=== PATIENT | male | born 1950 | race Caucasian/White ===

== ENCOUNTER → 2017-03-25 | Outpatient (CLI) | payer BC ==
[~2017-03-25] MED LIST: ACET-1138 PO; ALL300 PO; ASPEC325 PO; ATOR10TA82 PO; BENA20TA12 PO; CYAN100020 PO; FLM4 PO; KETO2CRE14 TOP; MELO15TA4 PO; METO25TA3 PO; MULT-506 PO; OMEG10007 PO; PRLSR20 PO; RXC5 PO; SYN88 PO
--- NOTE | 2017-03-25 16:38 | DIAGNOSTIC IMAGING REPORT ---
CT OF THE CHEST WITHOUT IV CONTRAST CLINICAL HISTORY: Follow-up pulmonary nodule. COMPARISON STUDY: Chest CTs September 23, 2015 and March 22, 2016. CT DOSE: 887.54 mGy.cm TECHNIQUE: Axial images of the chest were obtained without IV contrast. Images were reviewed in the axial, sagittal, and coronal planes. IV contrast was not administered for this examination. A dose lowering technique was utilized adhering to the principles of ALARA. FINDINGS: No enlarged axillary, mediastinal or hilar lymph nodes are present. The size of the heart is normal. Mild dilatation of the ascending aorta, measuring 4 cm, is unchanged. There is extensive coronary artery calcification. Central airways are patent. No consolidation to suggest pneumonia. A 5 mm subpleural right upper lobe nodule shown on image 114 of [address] of September 23, 2015. No new nodules are present. No pneumothorax or pleural effusion is present. Punctate calculi are identified within each collecting system. Upper abdomen is otherwise unremarkable. IMPRESSION: 1. No change in a 5 mm right upper lobe nodule since CT of September 23, 2015. This is likely benign. However, a follow chest CT in one year could be obtained to ensure stability. 2. Punctate bilateral renal calculi. 3. No acute intrathoracic findings. 4. No thoracic lymphadenopathy. 5. Extensive coronary artery calcification. Electronically signed by: Mohsen Angel M.D. 03/25/2017 4:37 PM Dictated Date/Time: 03/25/2017 4:25 PM
== END | disposition home or self-care (01) ==
LOC: C.CTS 16:01
PROVIDERS: ATTEND Physician Assistant
DX: R91.1 Solitary pulmonary nodule (principal)

== ENCOUNTER → 2017-07-23 | Outpatient (CLI) | payer BC ==
[~2017-07-23] MED LIST changes: +MELO-84 PO; -MELO15TA4 PO
--- NOTE | 2017-07-23 08:29 | DIAGNOSTIC IMAGING REPORT ---
KUB HISTORY: N20.0 Nephrolithiasis COMPARISON: KUB 01/26/2016. FINDINGS: The bowel gas pattern is unremarkable. There are no dilated loops of small bowel to suggest an obstruction. Calcifications in the deep pelvis likely represent phleboliths. These remain unchanged. Multiple bilateral renal calculi are again noted. These are similar compared the prior study. Dominant stone within the lower pole the left kidney measures 5 mm. No ureteral calculi identified. No pneumoperitoneum or pneumatosis. IMPRESSION: No significant change in the bilateral nephrolithiasis. No ureteral calculi. Electronically signed by: Randy Barnes M.D. 07/23/2017 8:28 AM Dictated Date/Time: 07/23/2017 8:27 AM
== END ==
LOC: C.RAD 07:11
PROVIDERS: ATTEND Urology
DX: N20.0 Calculus of kidney (principal); N40.1 Benign prostatic hyperplasia with lower urinary tract symptoms; R97.20 Elevated prostate specific antigen [PSA]

== ENCOUNTER 2018-01-04 07:46 | Inpatient (IN) | payer BC, OTHER ==
[2017-11-30 09:10] VITALS: Ht 175.3 cm; Wt 101.4 kg
--- NOTE | 2017-12-12 13:25 | PAT Medication Instructions ---
Service Date Dec 12, 2017. Current Home Medication List Allopurinol (Zyloprim), 300 MG PO QAM Aspirin (Aspirin Chewable), 81 MG PO QAM Benazepril/Hctz (Lotensin Hct), 1 TAB PO QAM Cyanocobalamin (Vitamin B12), 1 TAB PO QAM Fish Oil ([place]-3), 3 CAP PO QPM Ketoconazole (Topical) (Xolegel), 1 DOSE EXT DIRECTED PRN for PRN Levothyroxine Sodium (Levothyroxine Sodium), 1 TAB PO QAM Meloxicam (Mobic), 7.5 MG PO QAM Metoprolol Succ (Toprol Xl) (Toprol-Xl), 25 MG PO QAM Multivitamin (Multivitamin), 1 TAB PO QPM Omeprazole (Prilosec), 20 MG PO QAM Oxycodone/Acetaminophen 5MG/325MG (Percocet 5MG/325MG), 1 TABLET PO Q4H PRN for Pain Phenazopyridine Hcl (Pyridium), 200 MG PO TID Rosuvastatin Calcium (Crestor), 5 MG PO QAM Tamsulosin Hcl (Flomax), 0.4 MG PO QPM Medication Instructions For Your Scheduled Surgery - Continue as directed: Phenazopyridine Hcl (Pyridium), 200 MG PO TID - Check with surgeon for instructions: Meloxicam (Mobic), 7.5 MG PO QAM - Hold the following medications 24 hours prior to surgery: Ketoconazole (Topical) (Xolegel), 1 DOSE EXT DIRECTED PRN for PRN - Hold the following medications 2 weeks prior to surgery: Fish Oil ([place]-3), 3 CAP PO QPM - Hold the following medications the morning of surgery: Benazepril/Hctz (Lotensin Hct), 1 TAB PO QAM Cyanocobalamin (Vitamin B12), 1 TAB PO QAM - Take the following medications the morning of surgery with a sip of water: Levothyroxine Sodium (Levothyroxine Sodium), 1 TAB PO QAM Metoprolol Succ (Toprol Xl) (Toprol-Xl), 25 MG PO QAM Omeprazole (Prilosec), 20 MG PO QAM Oxycodone/Acetaminophen 5MG/325MG (Percocet 5MG/325MG), 1 TABLET PO Q4H PRN for Pain (okay to take up to 4 hours prior to surgery if needed) Rosuvastatin Calcium (Crestor), 5 MG PO QAM Allopurinol (Zyloprim), 300 MG PO QAM Aspirin (Aspirin Chewable), 81 MG PO QAM - Take the following medications as scheduled the night before surgery: Tamsulosin Hcl (Flomax), 0.4 MG PO QPM Oxycodone/Acetaminophen 5MG/325MG (Percocet 5MG/325MG), 1 TABLET PO Q4H PRN for Pain (if needed) Multivitamin (Multivitamin), 1 TAB PO QPM If you have any questions please call us at [phone] or [phone] or [phone]
[2018-01-04] VITALS (9 sets, daily range): BP systolic 112–147; BP diastolic 67–85; PULSE 54–82; TEMP 36.4–36.6; O2SAT 94–99
[~2018-01-04] VITALS: Ht 175.3 cm; Wt 101.4 kg
[~2018-01-04 07:46] MED LIST changes: -ACET-1138 PO; +ACETAMINOPHEN 500 MG TAB PO SCH; -ALL300 PO; +ALLO300T2 PO; +ASPCH81X PO; -ASPEC325 PO; -ATOR10TA82 PO; +ATROPINE SULFATE 0.1 MG/ML 5ML SYR IV PRN; +BENA-3 PO; -BENA20TA12 PO; +CEFAZOLIN 2000MG IV PUSH 15 ML IV SCH; +CeleBREX 200 MG CAP PO SCH; +EpHEDrine SULFATE INJ 50 MG/ML AMP IV PRN; +FENTANYL CITRATE INJ 50 MCG/1 ML 2 ML VIAL IV PRN; -FLM4 PO; +GABAPENTIN 300 MG CAP PO SCH; +HYDROmorphone INJ 1 MG/ML SYR IV PRN; -KETO2CRE14 TOP; +KETO2GEL2 EXT; +LEVO100T7 PO; -MELO-84 PO; +MELO7.5T5 PO; +ONDANSETRON INJ 2 MG/ML 2 ML VIAL IV PRN; +OXYC-57 PO; +PHENYLEPHRINE 100MCG/ML 5ML SYR IV PRN; +PROMETHAZINE HCL INJ 12.5 MG in SODIUM CHLORIDE 0.9% 50ML 50 ML IV PRN; +ROSU5TAB PO; -RXC5 PO; -SYN88 PO; +TAMS0.4C38 PO
[2018-01-04] MEDS ORDERED: DOCU-94 PO (08:33)
[2018-01-04] MEDS ORDERED: MIDAZOLAM HCL 1 MG/ML 2ML VIAL ONE (08:46)
[2018-01-04] MEDS ORDERED: FENTANYL CITRATE INJ 50 MCG/1 ML 2 ML VIAL ONE ×3 (08:46→11:25)
--- NOTE | 2018-01-04 09:03 | History & Physical Bridge Note ---
H&P Re-Evaluation Bridge Note: I have examined the patient, reviewed the History & Physical and in the interval since the performance of the History & Physical I have noted the following changes of clinical significance: No changes noted
--- NOTE | 2018-01-04 09:04 | History and Physical ---
History & Physical Date Jan 04, 2018. Chief Complaint Back and leg pain History of Present Illness The patient is a 67 year old male with complaints of back and leg pain Past Medical/Surgical History Medical Problems: (1) Left Knee DJD Additional History Hepatic Disease: No Endocrine Disorder: No Kidney Disease: No Hypertension: Yes Heart Disease: No Bleeding Tendencies: No Infectious Diseases: No Allergies Coded Allergies: No Known Allergies (Verified , 01/04/18) Home Medications Scheduled Allopurinol (Zyloprim), 300 MG PO QAM Aspirin (Aspirin Chewable), 81 MG PO QAM Benazepril/Hctz (Lotensin Hct), 1 TAB PO QAM Cyanocobalamin (Vitamin B12), 1 TAB PO QAM Docusate Sodium (Colace), 1 CAP PO BID Fish Oil ([place]-3), 3 CAP PO QPM Levothyroxine Sodium (Levothyroxine Sodium), 1 TAB PO QAM Meloxicam (Mobic), 7.5 MG PO QAM Metoprolol Succ (Toprol Xl) (Toprol-Xl), 25 MG PO QAM Multivitamin (Multivitamin), 1 TAB PO QPM Omeprazole (Prilosec), 20 MG PO QAM Rosuvastatin Calcium (Crestor), 5 MG PO QAM Tamsulosin Hcl (Flomax), 0.4 MG PO QPM Scheduled PRN Ketoconazole (Topical) (Xolegel), 1 DOSE EXT DIRECTED PRN for PRN Physical Examination Skin: warm/dry, no rash Eyes: normal inspection, EOMI, sclerae normal ENT: normal ENT inspection, pharynx normal Head: normocephalic, atraumatic Neck: supple, no adenopathy, trachea midline Respiratory/Chest: lungs clear, normal breath sounds, no respiratory distress Cardiovascular: regular rate, rhythm, no edema, no murmur Abdomen / GI: normal bowel sounds, non tender Back: normal inspection Extremities: normal inspection, normal range of motion Neurologic/Psych: no motor/sensory deficits, alert, normal reflexes, oriented x 3 Diagnosis Lumbar spinal stenosis with neurogenic claudication and spondylolisthesis Plan of Treatment L2-L5 decompression and fusion
[2018-01-04] MEDS ORDERED: BUPIVACAINE LIPOSOME 1/3% 266 MG/20 ML VIAL ONE (09:21)
[2018-01-04] MEDS ORDERED: BACITRACIN 50000 UNIT VIAL ONE (09:21)
[2018-01-04] MEDS ORDERED: SODIUM CHLORIDE 0.9% PF 50 ML VIAL ONE (09:21)
[2018-01-04] MEDS ORDERED: BUPIVACAINE 0.5 % 5 MG/1 ML PF 10ML VIAL ONE (09:22)
[2018-01-04] MEDS ORDERED: BUPIVACAINE/EPINEPHRINE 0.5% MPF 1:200,000 30 ML VIAL ONE (09:54)
[2018-01-04] MEDS ORDERED: HYDROmorphone INJ 2 MG/ML SYR/VIAL ONE ×3 (10:07→12:19)
[2018-01-04] MEDS ORDERED: PHENYLEPHRINE 100MCG/ML 5ML SYR ONE ×2 (10:30→12:39)
[2018-01-04] MEDS ORDERED: ALBUMIN HUMAN 5% 12.5 GM/250 ML VIAL IV ONE ×2 (11:38→12:29)
[2018-01-04 12:37] LABS: HEMOGLOBIN 11.5 g/dL (14.0-18.0)
--- NOTE | 2018-01-04 12:37 | [facility] Operative Report ---
Operative Report Operative Date Jan 04, 2018. Pre-Operative Diagnosis Lumbar spinal stenosis with neurogenic claudication and spondylolisthesis Post-Operative Diagnosis Same Procedure(s) Performed 1. Lumbar decompression medial facetectomies foraminotomies L2-3 L3-4 L4-5. #2 posterior spinal fusion L2-3 L3-4 L4-5 per #3 placement posterior segmental instrumentation L2-L5. #4 interbody fusion L3-4-5. #5 placement of 13 x 26 mm titanium cage at L3-4 and L4-5 per #6 placement of local autograft in the posterior lateral gutters. #7 placement InFUSE collagen sponge Bymaster graft the posterior gutters and ostial amp in the interbody space. Surgeon Dr. Blanco Beck Stave And Bolt Equalizer Surgeon(s) Marj Petit PA-C Estimated Blood Loss 1000mL Findings Severe spinal stenosis with spondylolisthesis Specimens None Anesthesia Type General Description of Procedure Patient was met with preoperatively case discussed all questions addressed. After informed consent obtained patient was taken to the operative suite underwent intubation placed in prone position injection table to all bony prominences well-padded eyes inspected to ensure no external pressure placed upon the. This point the lumbar spine was prepped and draped in normal sterile fashion. Sharp dissection with the assistance of Bovie cautery was performed down to and exposing the lamina and transverse processes of L2-L3-L4 L5 bilaterally. Severe facet hypertrophy instability noted. Complete laminectomy of L4 L3 and L2 is performed addressing severe lateral recess and foraminal disease. Pedicle screws were then placed in L2 L3-L4-L5 bilaterally with the assistance of fluoroscopy and the purposes leatha placed. Through a trans- foraminal approach on left complete discectomy L4-5 was performed endplates created to subcortical bleeding bone and a 13 x 26 mm titanium cage filled with ostium bone graft tapped into position. Then proceeded L3-4 and again through a transforaminal approach and left be discectomy performed endplates created to subcortical bleeding bone and again a 13 x 26 mm titanium cage for the ostium bone graft tapped in position. Rods then compressed locked in final position bilaterally. Infuse collagen sponge mass graft and local autograft placed in the posterior gutters. Approximately 120 cc of Exparel injected into the musculature. A 15 round IRAIDA drain inserted. Incision was then closed with 1 Vicryl fascia 2-0 Vicryl subtends and 4 Monocryl fashion closure Steri-Strips sterile dressings placed. Patient weakened and taken to PACU in a stable condition. Please note Marj Damian was present at the entire procedure involved in patient positioning complex portions of the surgery and final skin closure. I attest to the content of the Intraoperative Record and any orders documented therein. Any exceptions are noted below.
[2018-01-04] MEDS ORDERED: ROCURONIUM BROMIDE 10 MG/ML 5 ML VIAL ONE (12:39)
[2018-01-04] MEDS ORDERED: LIDOCAINE HCL 2% 2 ML VIAL (20MG/ML) ONE (12:39)
[2018-01-04] MEDS ORDERED: ONDANSETRON INJ 2 MG/ML 2 ML VIAL ONE (12:39)
[2018-01-04] MEDS ORDERED: GLYCOPYRROLATE INJ 0.2 MG/ML VIAL ONE (12:39)
[2018-01-04] MEDS ORDERED: PROPOFOL IV EMULSION 10 MG/ML 20 ML VIAL ONE (12:39)
[2018-01-04] MEDS ORDERED: DEXAMETHASONE SOD INJ 4 MG/ML VIAL ONE (12:39)
[2018-01-04] MEDS ORDERED: EpHEDrine SULFATE 50MG/5ML SYR ONE (12:39)
[2018-01-04] MEDS ORDERED: KETOROLAC TROMETHAMINE 30 MG/ML VIAL ONE (12:39)
[2018-01-04] MEDS ORDERED: NEOSTIGMINE METHYLSULFATE 1 MG/ML 10ML VIAL ONE (12:39)
[2018-01-04] MEDS ORDERED: FLOSEAL HEMOSTATIC MATRIX 10ML TOP ONE (12:41)
[2018-01-04] MEDS ORDERED: DO NOT ADMINISTER FLU VACCINE PRN (12:45)
[2018-01-04] MEDS ORDERED: DO NOT ADMINISTER PNEUMOCOCCAL VACCINE PRN (12:45)
[2018-01-04] MEDS ORDERED: MAGNESIUM HYDROXIDE SUSP 30 ML UDC PO PRN (12:45)
[2018-01-04] MEDS ORDERED: FAMOTIDINE 20 MG TAB PO PRN (12:45)
[2018-01-04] MEDS ORDERED: METOCLOPRAMIDE HCL INJ 5 MG/ML 2 ML VIAL IV PRN (12:45)
[2018-01-04] MEDS ORDERED: PROMETHAZINE HCL INJ 12.5 MG in SODIUM CHLORIDE 0.9% 50ML 50 ML IV PRN (12:45)
[2018-01-04] MEDS ORDERED: ONDANSETRON INJ 2 MG/ML 2 ML VIAL IV PRN (12:45)
[2018-01-04] MEDS ORDERED: SOD PHOSPHATE/SOD BIPHOSPHATE ENEMA 132 ML BTL PR PRN (12:45)
[2018-01-04] MEDS ORDERED: NALOXONE HCL 0.4 MG/1 ML VIAL/CARP IV PRN (12:45)
[2018-01-04] MEDS ORDERED: ALUMINUM/MAGNESIUM SUSP 30 ML UDC PO PRN (12:45)
[2018-01-04] MEDS ORDERED: LORAZEPAM 0.5 MG TAB PO PRN (12:45)
[2018-01-04] MEDS ORDERED: CEFAZOLIN SOD 1 GM VIAL ONE (12:45)
[2018-01-04] MEDS ORDERED: BISACODYL 10 MG SUPP PR PRN (12:45)
[2018-01-04] MEDS ORDERED: ACETAMINOPHEN 500 MG TAB PO PRN (12:45)
[2018-01-04] MEDS ORDERED: LORAZEPAM INJ 0.5 MG in SYRINGE 0 ML IV PRN (12:45)
[2018-01-04] MEDS ORDERED: hydrOXYzine HCL 25 MG TAB PO PRN (12:45)
--- NOTE | 2018-01-04 13:11 | DIAGNOSTIC IMAGING REPORT ---
INTRAOPERATIVE RADIOGRAPHS CLINICAL HISTORY: L2-L5 spinal fusion. Fluoroscopy time: 24 seconds. FINDINGS: 3 spot fluoroscopic views of the lumbar spine are presented. There has been discectomy at L3-L4 and L4-L5 with laminectomy and posterior fusion from L2 -L5. Interpedicular screws are present at all levels. Orthopedic hardware appears intact. IMPRESSION: Intraoperative images from L2 -L5 spinal fusion as above. Electronically signed by: Jerod Franco M.D. 01/04/2018 1:10 PM Dictated Date/Time: 01/04/2018 1:09 PM
[2018-01-04] MEDS ORDERED: HYDROmorphone INJ 0.5 MG/0.5 ML SYR IV PRN (13:30)
[2018-01-04] MEDS ORDERED: LACTATED RINGER'S 1000ML 1,000 ML IV SCH (13:45)
[2018-01-04] MEDS ORDERED: ESMOLOL HCL 10 MG/ML 10 ML VIAL ONE (14:05)
--- NOTE | 2018-01-04 15:31 | Medical Consult ---
Consultation Date of Consultation: Jan 04, 2018. Attending Physician: Blanco Beck D.O. Reason for Consultation: post op medical management History of Present Illness Pt is 67 y/o M with PMH HTN, GERD, DAYANARA, HLD, gout, hypothyroidism, H/WPW, mildly dilated proximal ascending aorta diameter 4.1 cm on echo on 08/2017 seen in medical consultation after lumbar decompression and fusion today by Dr. Beck. Estimated blood loss: 1000 mL. Patient states currently pain well controlled and rates pain 1 out of 10 on pain scale. Reports sensation to bilateral lower extremities is returning. Has Gandara catheter in place. Denies any flatulence yet since surgery. Denies current nausea, denies vomiting. Denies HARRIS, dizziness, syncope, vision changes, neck pain, CP, SOB, orthopnea, palpitations, choking,abdominal pain, rashes. Past Medical/Surgical History Medical Problems: (1) BPH (benign prostatic hyperplasia) Status: Chronic (2) Dilated aortic root Permanent Comment: History of mildly dilated proximal ascending aorta. 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 Beck Status: Resolved (4) History of squamous cell carcinoma excision Permanent Comment: Nose, right hand Status: Resolved Family History FH: colon cancer Hypertension Social History Smoking Status: Former Smoker Smokeless Tobacco Use: No Alcohol Use: 2-4 drinks 3 times a week. Last drink 01/01/80 Drug Use: none Marital Status: Housing Status: lives with significant other Allergies Coded Allergies: No Known Allergies (Verified , 01/04/18) Current Inpatient Medications Current Inpatient Medications Medications (Trade) Dose Ordered Sig/Pilar Route Start Time Stop Time Status Last Admin Dose Admin Lactated Ringer's 1,000 ml @ 0 mls/hr Q0M IV 01/04/18 13:45 02/03/18 13:44 01/04/18 08:39 1,000 MLS/HR Cefazolin Sodium 15 ml @ 3.75 mls/ min PREOP IV 01/04/18 06:00 01/04/18 18:00 01/04/18 09:38 3.75 MLS/MIN Acetaminophen (Tylenol Tab) 1,000 mg PREOP PO 01/04/18 06:00 01/04/18 18:00 01/04/18 08:35 1,000 MG Celecoxib (CeleBREX CAP) 200 mg PREOP PO 01/04/18 06:00 01/04/18 18:00 01/04/18 08:35 200 MG Gabapentin (Neurontin Cap) 300 mg PREOP PO 01/04/18 06:00 01/04/18 18:00 01/04/18 08:34 300 MG Promethazine HCl 12.5 mg/Sodium Chloride 50.5 ml @ 202 mls/hr Q6H PRN IV 01/04/18 12:45 02/03/18 12:44 Ondansetron HCl (Zofran Inj) 4 mg Q6H PRN IV 01/04/18 12:45 02/03/18 12:44 Metoclopramide HCl (Reglan Inj) 10 mg Q6H PRN IV 01/04/18 12:45 02/03/18 12:44 Lorazepam (Ativan Tab) 0.5 mg Q8H PRN PO 01/04/18 12:45 02/03/18 12:44 Lorazepam 0.5 mg/ Syringe 0.25 ml @ 1 mls/min Q8H PRN IV 01/04/18 12:45 02/03/18 12:44 Pneumococcal Polysaccharide Vaccine 1 ea PRN PRN N/A 01/04/18 12:45 02/03/18 12:44 Influenza Virus Vacc Triv Types A&B 1 ea PRN PRN N/A 01/04/18 12:45 02/03/18 12:44 Polyethylene (Miralax Powder Packet) 17 gm Q6 PO 01/06/18 06:00 02/05/18 05:59 Bisacodyl (Dulcolax Supp) 10 mg DAILY PRN WA 01/04/18 12:45 02/03/18 12:44 Magnesium Hydroxide (Milk Of Magnesia Susp) 30 ml DAILY PRN PO 01/04/18 12:45 02/03/18 12:44 Hydromorphone HCl (Dilaudid Inj) 0.5-1mg prn moder... Q3H PRN IV 01/04/18 13:30 01/18/18 13:29 Oxycodone HCl (Roxicodone Immediate Rel Tab) 5-10mg prn moderate to sev... Q4H PRN PO 01/04/18 13:30 01/18/18 13:29 Cefazolin Sodium 2000 mg/Syringe 15 ml @ 3.75 mls/ min Q8H IV 01/04/18 18:00 01/05/18 02:03 Sodium Chloride 1,000 ml @ 150 mls/hr Q6H40M IV 01/04/18 14:45 02/03/18 14:44 Acetaminophen (Tylenol Tab) 1,000 mg Q8H PRN PO 01/04/18 12:45 02/03/18 12:44 Acetaminophen 100 ml @ 400 mls/hr Q8H PRN IV 01/04/18 12:45 02/03/18 12:44 Naloxone HCl (Narcan Inj) 0.1 mg Q5M PRN IV 01/04/18 12:45 02/03/18 12:44 Senna/Docusate Sodium (Senokot S Tab) 2 tab HS PO 01/04/18 21:00 02/03/18 20:59 Sodium Biphosphate/ Sodium Phosphate (Fleet Enema) 132 ml ONE PRN [place] 01/04/18 12:45 02/03/18 12:44 Hydroxyzine HCl (Vistaril Tab) 25 mg Q8H PRN PO 01/04/18 12:45 02/03/18 12:44 Al Hydroxide/Mg Hydroxide (Maalox Susp) 30 ml Q6H PRN PO 01/04/18 12:45 02/03/18 12:44 Famotidine (Pepcid Tab) 20 mg Q12 PRN PO 01/04/18 12:45 02/03/18 12:44 Diphenhydramine HCl (Benadryl Cap) 25 mg Q6H PRN PO 01/04/18 12:45 02/03/18 12:44 Allopurinol (Zyloprim Tab) 300 mg QAM PO 01/05/18 09:00 02/04/18 08:59 Aspirin (Ecotrin Tab) 81 mg QAM PO 01/05/18 09:00 02/04/18 08:59 Levothyroxine Sodium (Synthroid Tab) 100 mcg DAILYBB PO 01/05/18 06:00 02/04/18 05:59 Metoprolol Succinate (Toprol Xl Tab) 25 mg QAM PO 01/05/18 09:00 02/04/18 08:59 Multivitamins (Multivitamin Tab) 1 tab QPM PO 01/04/18 21:00 02/03/18 20:59 Rosuvastatin Calcium (Crestor Tab) 5 mg QAM PO 01/05/18 09:00 02/04/18 08:59 Tamsulosin HCl (Flomax Cap) 0.4 mg QPM PO 01/04/18 21:00 02/03/18 20:59 Enalapril Maleate (Vasotec Tab) 10 mg QAM PO 01/05/18 09:00 02/04/18 08:59 Pantoprazole Sodium (Protonix Tab) 40 mg QAM PO 01/05/18 09:00 02/04/18 08:59 Hydrochlorothiazide (Hydrochlorothiazide Tab) 12.5 mg QAM PO 01/05/18 09:00 02/04/18 08:59 Review of Systems See HPI for pertinent positives & negatives. All other systems reviewed and were otherwise negative Physical Exam Date Time Temp Pulse Resp B/P (MAP) Pulse Ox O2 Delivery O2 Flow Rate FiO2 01/04/18 15:00 57 16 132/75 (94) 96 Nasal Cannula 2.0 01/04/18 14:31 36.4 82 19 136/79 (98) 98 Nasal Cannula 2.0 01/04/18 14:28 98 Nasal Cannula 2.0 01/04/18 14:05 36.0 54 20 128/73 98 Nasal Cannula 2 01/04/18 13:55 56 18 133/80 99 Nasal Cannula 2 01/04/18 13:45 64 18 132/78 98 Nasal Cannula 2 01/04/18 13:35 62 14 137/79 94 Room Air 01/04/18 13:30 36 67 13 135/82 95 Room Air 01/04/18 13:20 71 19 149/83 100 Oxymask 10 01/04/18 13:10 76 11 145/87 100 Oxymask 10 01/04/18 13:01 36 87 11 141/84 98 Oxymask 10 01/04/18 09:00 36.6 61 18 147/85 95 Room Air General Appearance: WD/WN, no apparent distress Head: normocephalic, atraumatic Eyes: normal inspection, sclerae normal ENT: hearing grossly normal, pharynx normal, + pertinent finding (Mucous membranes moist) Neck: supple, trachea midline Respiratory/Chest: lungs clear, normal breath sounds, no respiratory distress Cardiovascular: regular rate, rhythm, no murmur, normal peripheral pulses Abdomen/GI: normal bowel sounds, non tender, soft Extremities/Musculoskelatal: normal capillary refill, no pedal edema, + pertinent finding (Bilateral pedal pushes and pulls intact) Neurologic/Psych: alert, normal mood/affect, normal reflexes Laboratory Results Last 24 Hours Test 01/04/18 08:24 01/04/18 12:25 Bedside Glucose 112 mg/dl Hemoglobin 11.5 g/dL Hematocrit 33.0 % Assessment & Plan POST OP DAY#0 S/P LUMBAR DECOMPRESSION AND FUSION BY DR. BECK -pain management per ortho -wound management per ortho -PT/OT as appropriate -DVT prophylaxis per ortho -incentive spirometry ACUTE BLOOD LOSS ANEMIA Hgb: 15 prior to surgery, Hgb: 11.5 today after surgery. EBL: 1000 mL -monitor H&H HTN Stable -Continue benazepril/HCTZ, metoprolol with holding parameters H/O DILATED PROXIMAL ASCENDING AORTA Echo: 08/2017: Mildly dilated proximal ascending aorta, diameter 4.1 cm History stress echo 08/2017: No inducible ischemia, EF: 55-59% H/O HPW HYPOTHYROIDISM TSH: 1.8 on 12/2017 -Continue levothyroxine HLD -Continue statin GOUT -Continue allopurinol GERD -Continue PPI DAYANARA History intolerance to CPAP -Supplemental oxygen at bedtime BPH -Continue Flomax DVT Prophylaxis -per ortho Admitted med surg Full Code Follows with Dr Bellamy for routine care Pt was seen with Dr Boggs. See addendum Attending addendum: The patient was seen and examined in medical floor. He has 6 significant past medical history including remote history of WPW, hypertension, hypothyroidism and back pain with lumbar radiculopathy He has had preop evaluation without any significant abnormality Following surgery he denies to have any chest pain, palpitation, shortness of breath, nausea and/or vomiting and any increasing numbness or weakness involving the left lower extremity On examination No apparent distress at rest Hemodynamically stable Chest-clear to auscultate bilaterally Heart-regular, no murmur appreciated Abdomen-soft, benign, nontender, no organomegaly Extremities-no edema, moves toes and ankle normal both sites 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 Dr. Eddi Boggs Pt will be followed by Dr Villegas during remaining hospital course. Additional Copies To Luis Bellamy D.O.
[2018-01-04] MEDS: SODIUM CHLORIDE 0.9% 1000ML 1,000 ML IV SCH ×2 (18:32→23:25)
[2018-01-04] MEDS: CEFAZOLIN IV 2,000 MG in SYRINGE 0 ML IV SCH (18:32)
[2018-01-04] MEDS: DOCUSATE SODIUM/SENNA 50/8.6MG TAB PO SCH (21:01)
[2018-01-04] MEDS: TAMSULOSIN HCL 0.4 MG CAP PO SCH (21:01)
[2018-01-04] MEDS: MULTIVITAMIN TAB PO SCH (21:02)
[2018-01-04] MEDS: OXYCODONE HCL IR 5 MG TAB (IMMEDIATE RELEASE) PO PRN (22:04)
[2018-01-05] VITALS (13 sets, daily range): BP systolic 64–133; BP diastolic 39–73; PULSE 56–77; TEMP 36.5–37; O2SAT 63–100
[2018-01-05] MEDS: CEFAZOLIN IV 2,000 MG in SYRINGE 0 ML IV SCH (02:00)
[2018-01-05] MEDS: ACETAMINOPHEN IV 100 ML IV PRN ×2 (02:03→13:20)
[2018-01-05] MEDS: LEVOTHYROXINE 100 MCG TAB PO SCH (05:31)
[2018-01-05] MEDS ORDERED: NURSING DECISION MEDICATION ORDER SCH (05:45)
[2018-01-05 06:07] LABS: BASO % 0.1 %; BASO ABS # 0.01 K/uL (0-0.2); EOS % 2.2 %; EOS ABS # 0.16 K/uL (0-0.5); HEMOGLOBIN 9.9 g/dL (14.0-18.0); IG# 0.02 K/uL (0.00-0.02); LYMPH % 17.5 %; MEAN CELL VOLUME 92.9 fL (80-100); MEAN CORPUSCULAR HEMOGLOBIN 31.7 pg (25-34); MEAN CORPUSCULAR HGB CONC 34.1 g/dl (32-36); MONO ABS # 0.67 K/uL (0.11-0.59); NEUT % 70.9 %; NEUT ABS # 5.27 K/uL (1.4-6.5); PLATELET COUNT 154 K/uL (130-400); RED CELL DISTRIBUTION WIDTH CV 13.1 % (11.5-14.5); RED CELL DISTRIBUTION WIDTH SD 44.3 fL (36.4-46.3); WHITE BLOOD COUNT 7.43 K/uL (4.8-10.8)
[2018-01-05 06:44] LABS: CALCIUM 7.5 mg/dl (8.5-10.1); CREATININE 0.98 mg/dl (0.60-1.40); POTASSIUM 4.2 mmol/L (3.5-5.1)
[2018-01-05] MEDS ORDERED: KETOROLAC TROMETHAMINE 15 MG/ML VIAL IV. STA (07:55)
--- NOTE | 2018-01-05 08:13 | Progress Note ---
Progress Note Date of Service Jan 05, 2018. Progress Note Patient's back pain is controlled leg symptoms improved vital signs stable. IRAIDA drain decreasing appropriately. On exam his good strength testing appears comfortable. Assessment status post lumbar decompression fusion per plan at this time will continue physical therapy today monitor his IRAIDA output hopefully discharge home this weekend.
[2018-01-05] MEDS ORDERED: RXC5 PO (08:15)
--- NOTE | 2018-01-05 08:16 | Discharge Instructions ---
Discharge Instructions Date of Service Jan 05, 2018. Admission Reason for Admission: Spinal Stenosis Discharge Discharge Diagnosis / Problem: lumbar stenosis Discharge Goals Goal(s): Improve function Activity Recommendations Activity Limitations: per Instructions/Follow-up section . Instructions / Follow-Up Instructions / Follow-Up ACTIVITY RECOMMENDATIONS: SELF CARE INSTRUCTIONS AFTER THORACIC/LUMBAR FUSIONS 1. You may walk to your tolerance. It is good exercise for your legs and back. Expect some back and intermittent leg aches and pains. 2. You may perform "counter-top" level activities (make a sandwich, juan with a project, etc.). 3. No bending or lifting of more than 10 pounds or back twisting of any nature (roll like a log when turning in bed). 4. You may ride in a car for 20-30 minutes at a time. No driving until after your first visit with your doctor. 5. Frequent changes of position and restricting sitting to 30 minutes at a time will help limit the amount of back spasms and stiffness you may experience. 6. You may discontinue the use of ambulatory aids (cane, crutches, etc.) once your strength and confidence allow. 7. 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 Do not take a tub bath, sit in a hot tub or go into a swimming pool until after your first recheck in the office. SPECIAL CARE INSTRUCTIONS: VERY IMPORTANT TO READ AND REVIEW A. Your surgical incision has been closed with a cosmetic suture under the skin that will dissolve in about 6 weeks. In 14 days, you can use a pair of clean scissors and cut the suture that is left outside of the skin at the ends of your incision. 1. The small skin tapes can be removed 7 days after surgery if they have not fallen off by that point. 2. You may keep the wound open to air as much as possible to promote healing after post-op day number 5 unless told otherwise by your doctor. 3. If you think the wound looks like it is becoming infected (redness or worsening drainage) and/or you are experiencing fever, chill or worsening back pain and muscle spasms, contact the office so that we may evaluate you as soon as possible. B. Complications are uncommon, but please contact us if you have any signs or symptoms of: 1. wound infection (fever higher than 102.5 degrees F, redness, separation of wound, drainage, or increasing pain from the incision) 2. blood clots in legs (pain, swelling, redness and warmth in legs) 3. urinary tract infection (fever higher than 102.5 degrees F, burning upon urination or increased frequency of urination) 4. nerve problems (inability to walk on your toes or heels, numbness, loss of bowel or bladder control) 5. any other symptoms that concern you C. Please call the office at if you have any concerns or questions about your operation or recovery. D. No smoking! Smoking drastically decreases the chance of a solid fusion. E. Do not take any anti-inflammatory medications (Indocin, Advil, Motrin, Aspirin, Naprosyn, etc.) as these may inhibit the chance of a solid fusion. Tylenol is okay to take for pain. MANAGING PAIN AFTER SPINAL SURGERY 1. Narcotic medication is intended for short-term use and will be provided for surgical pain. Surgical pain usually lasts for a period of 4-6 weeks. Narcotic medication includes Percocet, Vicodin, Darvocet, Tylenol #3 or Lortab. 2. Longer-term pain is more appropriately treated with non-narcotic medication such as Tylenol ES. 3. Muscle spasm is not appropriately treated with narcotics. Muscle relaxers such as Soma, Flexeril or Skelaxin can be used along with Tylenol ES. 4. Remember that we all live with some "aches and pains". This is not unusual or uncommon after an injury or as we get older. a. Back pain is expected and may include muscle spasms for 4 to 6 weeks after surgery. The pain should gradually improve. If the pain worsens for no apparent reason, please contact the office. b. Intermittent leg pain may also be experienced and should not be concerned about unless it worsens for no apparent reason. If so, please contact the office. 5. We will provide appropriate medication within the normal guidelines of their prescribed use. We will also be very cautious and aware of potential abuse and extended duration of patients' medication needs. a. Pain medications are for your comfort and to assist with sleep and rest so that the tissue can heal. They are not provided in order to return to normal activity and should not be used through the day. To do so or worsening pain at night can result from ongoing tissue damage and development of tolerance to the prescribed medicine. 6. Please allow 2-3 days to process refills. Prescriptions will not be mailed but must be picked up at the office. FOLLOW UP VISIT: Keep your scheduled follow-up appointment. Any questions, please call the office at . Current Hospital Diet Patient's current hospital diet: Regular Diet Discharge Diet Recommended Diet: Regular Diet Procedures Procedures Performed: 1. Lumbar decompression medial facetectomies foraminotomies L2-3 L3-4 L4-5. #2 posterior spinal fusion L2-3 L3-4 L4-5 per #3 placement posterior segmental instrumentation L2-L5. #4 interbody fusion L3-4-5. #5 placement of 13 x 26 mm titanium cage at L3-4 and L4-5 per #6 placement of local autograft in the posterior lateral gutters. #7 placement InFUSE collagen sponge Bymaster graft the posterior gutters and ostial amp in the interbody space. Pending Studies Studies pending at discharge: no Medical Emergencies . Who to Call and When: Medical Emergencies: If at any time you feel your situation is an emergency, please call 911 immediately. . Non-Emergent Contact Non-Emergency issues call your: Primary Care Provider . "Provider Documentation" section prepared by Blanco Beck. .
[2018-01-05] MEDS: METOPROLOL SUCC 25MG EXT REL TAB PO SCH (08:38)
[2018-01-05] MEDS: ROSUVASTATIN CALCIUM 10 MG TAB PO SCH (08:41)
[2018-01-05] MEDS: ASPIRIN 81 MG ECTAB PO SCH (08:42)
[2018-01-05] MEDS: ALLOPURINOL 300 MG TAB PO SCH (08:42)
--- NOTE | 2018-01-05 08:47 | Anesthesiology Progress Note ---
Anesthesia Post Op Note Date & Time Jan 05, 2018 at 08:46 Vital Signs Pain Intensity: 2.0 Vital Signs Past 12 Hours Date Time Temp Pulse Resp B/P (MAP) Pulse Ox O2 Delivery O2 Flow Rate FiO2 01/05/18 06:58 36.8 63 16 106/65 (79) 95 Room Air 01/05/18 03:42 36.5 62 16 111/67 (82) 97 Room Air 01/04/18 23:20 Room Air 01/04/18 22:56 36.6 61 16 112/67 (82) 95 Room Air Notes Mental Status: alert / awake / arousable, participated in evaluation Pt Amnestic to Procedure: Yes Nausea / Vomiting: adequately controlled Pain: adequately controlled Airway Patency, RR, SpO2: stable & adequate BP & HR: stable & adequate Hydration State: stable & adequate Anesthetic Complications: no major complications apparent
[2018-01-05] MEDS ORDERED: HYDROCHLOROTHIAZIDE 25 MG TAB PO SCH (09:00)
[2018-01-05] MEDS ORDERED: PANTOprazole SOD 40 MG TAB PO SCH (09:00)
[2018-01-05] MEDS ORDERED: ENALAPRIL MALEATE 10 MG TAB PO SCH (09:00)
--- NOTE | 2018-01-05 10:22 | Progress Note ---
Subjective Date of Service: Jan 05, 2018. (Trupti Steele PA-C) Subjective Pt evaluation today including: conversation w/ patient Seen and examined at bedside in room 312 Patient complaining of localized back pain currently, wax and wanes in severity from dull to sharp, currently 5/10, improving with pain medications, denies radiation of pain, numbness or tingling, weakness in the lower extremities. " It is mostly incisional pain. "Further complains of abdominal discomfort, decreased flatulence, comes and goes. Last BM 2 days ago, notes he has taken Colace daily for the past few years. "They started me on another stool softener , I think when I get up and moving that will help." He denies fever, chills, sweats, chest pain, shortness of breath, lightheadedness, dizziness, nausea, vomiting, diarrhea. Continues to have Gandara catheter in place which will be removed today. Appetite is improving. "My blood pressure has been on the lower side today, it was only 106." (Trupti Steele PA-C) Problem List Medical Problems: (1) BPH (benign prostatic hyperplasia) Status: Chronic (2) Dilated aortic root Permanent Comment: History of mildly dilated proximal ascending aorta. 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 Beck Status: Resolved (4) History of squamous cell carcinoma excision Permanent Comment: Nose, right hand Status: Resolved (Trupti Steele PA-C) Review of Systems As noted per HPI, 10 systems reviewed and negative unless noted above. (Trupti Steele PA-C) Medications reviewed in chart (Trupti Steeel PA-C) Objective Vital Signs Date Time Temp Pulse Resp B/P (MAP) Pulse Ox O2 Delivery O2 Flow Rate FiO2 01/05/18 07:20 Room Air 01/05/18 06:58 36.8 63 16 106/65 (79) 95 Room Air 01/05/18 03:42 36.5 62 16 111/67 (82) 97 Room Air 01/04/18 23:20 Room Air 01/04/18 22:56 36.6 61 16 112/67 (82) 95 Room Air 01/04/18 19:51 36.6 66 18 117/70 (86) 94 Room Air 01/04/18 17:29 36.6 67 18 129/76 (93) 94 Room Air 01/04/18 16:40 36.4 57 16 131/77 (95) 99 Nasal Cannula 1.0 01/04/18 16:00 99 Nasal Cannula 1.0 01/04/18 15:31 36.4 54 18 135/82 (99) 99 Nasal Cannula 3.0 01/04/18 15:00 57 16 132/75 (94) 96 Nasal Cannula 2.0 01/04/18 14:31 36.4 82 19 136/79 (98) 98 Nasal Cannula 2.0 01/04/18 14:28 98 Nasal Cannula 2.0 01/04/18 14:05 36.0 54 20 128/73 98 Nasal Cannula 2 01/04/18 13:55 56 18 133/80 99 Nasal Cannula 2 01/04/18 13:45 64 18 132/78 98 Nasal Cannula 2 01/04/18 13:35 62 14 137/79 94 Room Air 01/04/18 13:30 36 67 13 135/82 95 Room Air 01/04/18 13:20 71 19 149/83 100 Oxymask 10 01/04/18 13:10 76 11 145/87 100 Oxymask 10 01/04/18 13:01 36 87 11 141/84 98 Oxymask 10 (Trupti Steele PA-C) Physical Exam General Appearance: WD/WN, no apparent distress (lying in bed comfortably), + obese Eyes: normal inspection, sclerae normal ENT: normal ENT inspection, + pertinent finding (mucous membranes moist) Neck: supple, no JVD, no carotid bruits Respiratory/Chest: chest non-tender, lungs clear, normal breath sounds, no respiratory distress, no accessory muscle use Cardiovascular: regular rate, rhythm, no edema (b/l karishma stockings in place), no murmur Abdomen: normal bowel sounds, non tender, soft, no organomegaly Extremities: normal range of motion, non-tender, no pedal edema Neurologic/Psychiatric: no motor/sensory deficits, alert, normal mood/affect, oriented x 3 Skin: normal color, + pertinent finding (+ Low back incision, CDI, IRAIDA drain noted with 100cc of serosanginous drainage) (Trupti Steele, SARAIC) Laboratory Results Last 24 Hours Test 01/04/18 12:25 01/05/18 05:34 Hemoglobin 11.5 g/dL 9.9 g/dL Hematocrit 33.0 % 29.0 % White Blood Count 7.43 K/uL Red Blood Count 3.12 M/uL Mean Corpuscular Volume 92.9 fL Mean Corpuscular Hemoglobin 31.7 pg Mean Corpuscular Hemoglobin Concent 34.1 g/dl Platelet Count 154 K/uL Mean Platelet Volume 10.0 fL Neutrophils (%) (Auto) 70.9 % Lymphocytes (%) (Auto) 17.5 % Monocytes (%) (Auto) 9.0 % Eosinophils (%) (Auto) 2.2 % Basophils (%) (Auto) 0.1 % Neutrophils # (Auto) 5.27 K/uL Lymphocytes # (Auto) 1.30 K/uL Monocytes # (Auto) 0.67 K/uL Eosinophils # (Auto) 0.16 K/uL Basophils # (Auto) 0.01 K/uL RDW Standard Deviation 44.3 fL RDW Coefficient of Variation 13.1 % Immature Granulocyte % (Auto) 0.3 % Immature Granulocyte # (Auto) 0.02 K/uL Sodium Level 139 mmol/L Potassium Level 4.2 mmol/L Chloride Level 107 mmol/L Carbon Dioxide Level 26 mmol/L Anion Gap 6.0 mmol/L Blood Urea Nitrogen 15 mg/dl Creatinine 0.98 mg/dl Est Creatinine Clear Calc Drug Dose 85.9 ml/min Estimated GFR () 92.1 Estimated GFR (Non- 79.5 BUN/Creatinine Ratio 15.3 Random Glucose 102 mg/dl Calcium Level 7.5 mg/dl Magnesium Level 1.9 mg/dl (Trupti Steele PA-C) Assessment and Plan POST OP DAY#1 S/P LUMBAR DECOMPRESSION AND FUSION BY DR. BECK -PT/OT to begin today -pain/wound management per ortho -Continue to monitor IRAIDA drain output -incentive spirometry ACUTE BLOOD LOSS ANEMIA Hgb: 15 prior to surgery, Hgb: 9.9/29.0. Hgb 11.5 immediately post op. EBL: 1000 mL with IRAIDA drain in place -repeat H/H in the a.m. HTN -bp on low side today, 106/65. On multidrug regimen. -Continue benazepril/HCTZ, metoprolol. -increase hold parameters for MYA/HCTZ to hold if sbp <110 to avoid hypotension in setting of ABL Anemia. Constipation -colace, miralax. H/O DILATED PROXIMAL ASCENDING AORTA Echo: 08/2017: Mildly dilated proximal ascending aorta, diameter 4.1 cm History stress echo 08/2017: No inducible ischemia, EF: 55-59% H/O WPW HYPOTHYROIDISM TSH: 1.8 on 12/2017 -Continue levothyroxine HLD -Continue statin GOUT -Continue allopurinol GERD -Continue PPI DAYANARA History intolerance to CPAP -Supplemental oxygen at bedtime BPH -Continue Flomax -Gandara to be removed today. DVT Prophylaxis -per ortho Addendum: ~ 1300: Was notified by nurse Haydee patient was sitting up in chair OOB when he felt dizzy and lightheaded, SBP 60s, HR 58,returned to bed, symptoms resolved however pressure remained in 60s. He was given BP meds today, benazpril , HCTZ, metoprolol this a.m. despite SBP being 106. Encourage patient to remain in bed. IVF NS 500ml Bolus x1 ordered then 120cc/hr. Stat H/H to be drawn now. Order vitals q30min x 4. Will Hold antihypertensive medications for now, benazepril, HCTZ and monitor bp accordingly. (Trupti Steele PA-C) Attending Addendum Pt was seen and examined. Agreed with Trupti LERMA assessment and plan. Continue IVF. Hold BP med. Monitor h/h and blood pressure. MD Bakari (Demetrio Villegas M.D.)
[2018-01-05] MEDS: SODIUM CHLORIDE 0.9% 1000ML 1,000 ML IV SCH ×2 (13:15→18:24)
[2018-01-05] MEDS ORDERED: SODIUM CHLORIDE 0.9% 500ML 500 ML IV SCH (13:15)
[2018-01-05 13:33] LABS: HEMATOCRIT 29.4 % (42-52); HEMOGLOBIN 10.2 g/dL (14.0-18.0)
[2018-01-05] MEDS: KETOROLAC TROMETHAMINE 15 MG/ML VIAL IV. PRN (17:00)
[2018-01-05] MEDS: OXYCODONE HCL IR 5 MG TAB (IMMEDIATE RELEASE) PO PRN (20:24)
[2018-01-05] MEDS: TAMSULOSIN HCL 0.4 MG CAP PO SCH (21:23)
[2018-01-05] MEDS: DOCUSATE SODIUM/SENNA 50/8.6MG TAB PO SCH (21:23)
[2018-01-05] MEDS: MULTIVITAMIN TAB PO SCH (21:23)
[2018-01-06] MEDS: OXYCODONE HCL IR 5 MG TAB (IMMEDIATE RELEASE) PO PRN ×3 (00:24→21:26)
[2018-01-06] MEDS: KETOROLAC TROMETHAMINE 15 MG/ML VIAL IV. PRN ×3 (00:24→21:27)
[2018-01-06] MEDS: LEVOTHYROXINE 100 MCG TAB PO SCH (06:33)
[2018-01-06] MEDS: POLYETHYLENE (MIRALAX) 17 GM PACK PO SCH ×4 (06:33→22:57)
[2018-01-06 06:34] LABS: HEMATOCRIT 27.9 % (42-52); HEMOGLOBIN 9.5 g/dL (14.0-18.0); MEAN CELL VOLUME 92.1 fL (80-100); MEAN CORPUSCULAR HEMOGLOBIN 31.4 pg (25-34); MEAN CORPUSCULAR HGB CONC 34.1 g/dl (32-36); MEAN PLATELET VOLUME 9.9 fL (7.4-10.4); PLATELET COUNT 150 K/uL (130-400); RED CELL DISTRIBUTION WIDTH CV 13.1 % (11.5-14.5); RED CELL DISTRIBUTION WIDTH SD 44.4 fL (36.4-46.3); WHITE BLOOD COUNT 7.11 K/uL (4.8-10.8)
[2018-01-06 06:50] VITALS: BP_SYST 122; BP_SYST 125; BP_SYST 131; BP_DIAS 68; BP_DIAS 72; BP_DIAS 78; PULSE 70; PULSE 80; PULSE 85; O2SAT 96
[2018-01-06 07:02] LABS: CALCIUM 8.1 mg/dl (8.5-10.1); CREATININE 0.92 mg/dl (0.60-1.40); POTASSIUM 3.7 mmol/L (3.5-5.1)
[2018-01-06 07:28] VITALS: BP 100/55; PULSE 65; TEMP 36.5; O2SAT 94
[2018-01-06 07:50] VITALS: BP 108/65; PULSE 62; TEMP 36.4; O2SAT 96
[2018-01-06] MEDS: METOPROLOL SUCC 25MG EXT REL TAB PO SCH (08:58)
[2018-01-06] MEDS: ALLOPURINOL 300 MG TAB PO SCH (09:00)
[2018-01-06] MEDS: PANTOprazole SOD 40 MG TAB PO SCH (09:21)
[2018-01-06] MEDS: ASPIRIN 81 MG ECTAB PO SCH (09:23)
[2018-01-06] MEDS: ROSUVASTATIN CALCIUM 10 MG TAB PO SCH (09:23)
[2018-01-06] MEDS ORDERED: FERROUS SULFATE 325 MG TAB PO ONE (11:00)
--- NOTE | 2018-01-06 11:19 | Medical Consult ---
Consultation Date of Consultation: Jan 06, 2018. Attending Physician: Blanco Beck D.O. Reason for Consultation: post-op medical management History of Present Illness Patient seen and examined. States that back pain is improving, rating it as a 2/10. Has continued to feel lightheaded with any positional change, with + orthostatics SBP decreases from 110 supine to 80 standing. Discussed how blood loss anemia in combination with pain medication can cause his symptoms. Will continue fluids and hold BP medications. Hgb is stable at 9.5 Denies fever, chills,palpitations, chest pain, SOB or syncope. No calf pain or LE swelling. Past Medical/Surgical History Medical Problems: (1) Dehydration Status: Acute (2) Orthostatic hypotension Status: Acute (3) Vasovagal near syncope Status: Acute Family History FH: colon cancer Hypertension Social History Smoking Status: Former Smoker Smokeless Tobacco Use: No Alcohol Use: 2-4 drinks 3 times a week. Last drink 01/01/80 Drug Use: none Marital Status: Housing Status: lives with significant other Allergies Coded Allergies: No Known Allergies (Verified , 01/04/18) Home Medications Reported Home Medications Medications Dose Route/Sig Max Daily Dose Days Date Category Oxycodone HCl 5 Mg Tab 5-10 Mg PO Q4H PRN 30 01/05/18 Rx Colace (Docusate Sodium) 100 Mg Cap 1 Cap PO BID 15 01/04/18 Reported Vitamin B12 (Cyanocobalamin) 1,000 Mcg Tab 1 Tab PO QAM 11/15/17 Reported Multivitamin (Multivitamins) Tab 1 Tab PO QPM 11/15/17 Reported [place]-3 (Fish Oil) 1 Ea Cap 3 Cap PO QPM 11/15/17 Reported Aspirin Chewable (Aspirin) 81 Mg Chew 81 Mg PO QAM 11/15/17 Reported Xolegel (Ketoconazole (Topical)) 2 % Gel 1 Dose EXT DIRECTED PRN 11/15/17 Reported Mobic (Meloxicam) 7.5 Mg Tab 7.5 Mg PO QAM 11/15/17 Reported Prilosec (Omeprazole) 20 Mg Capcr 20 Mg PO QAM 11/15/17 Reported Crestor (Rosuvastatin Calcium) 5 Mg Tab 5 Mg PO QAM 11/15/17 Reported Flomax (Tamsulosin Hcl) 0.4 Mg Cap 0.4 Mg PO QPM 11/15/17 Reported Zyloprim (Allopurinol) 300 Mg Tab 300 Mg PO QAM 11/15/17 Reported Lotensin Hct (Benazepril/HCTZ) 10 Mg/12.5 Mg Tab 1 Tab PO QAM 11/15/17 Reported Toprol-Xl (Metoprolol Succinate) 25 Mg Tabcr 25 Mg PO QAM 11/15/17 Reported Levothyroxine Sodium 100 Mcg Tab 1 Tab PO QAM 11/15/17 Reported Current Inpatient Medications Current Inpatient Medications Medications (Trade) Dose Ordered Sig/Pilar Route Start Time Stop Time Status Last Admin Dose Admin Promethazine HCl 12.5 mg/Sodium Chloride 50.5 ml @ 202 mls/hr Q6H PRN IV 01/04/18 12:45 02/03/18 12:44 Ondansetron HCl (Zofran Inj) 4 mg Q6H PRN IV 01/04/18 12:45 02/03/18 12:44 Metoclopramide HCl (Reglan Inj) 10 mg Q6H PRN IV 01/04/18 12:45 02/03/18 12:44 Lorazepam (Ativan Tab) 0.5 mg Q8H PRN PO 01/04/18 12:45 02/03/18 12:44 Lorazepam 0.5 mg/ Syringe 0.25 ml @ 1 mls/min Q8H PRN IV 01/04/18 12:45 02/03/18 12:44 Pneumococcal Polysaccharide Vaccine 1 ea PRN PRN N/A 01/04/18 12:45 02/03/18 12:44 Influenza Virus Vacc Triv Types A&B 1 ea PRN PRN N/A 01/04/18 12:45 02/03/18 12:44 Polyethylene (Miralax Powder Packet) 17 gm Q6 PO 01/06/18 06:00 02/05/18 05:59 01/06/18 06:33 17 GM Bisacodyl (Dulcolax Supp) 10 mg DAILY PRN VT 01/04/18 12:45 02/03/18 12:44 Magnesium Hydroxide (Milk Of Magnesia Susp) 30 ml DAILY PRN PO 01/04/18 12:45 02/03/18 12:44 Hydromorphone HCl (Dilaudid Inj) 0.5-1mg prn moder... Q3H PRN IV 01/04/18 13:30 01/18/18 13:29 Oxycodone HCl (Roxicodone Immediate Rel Tab) 5-10mg prn moderate to sev... Q4H PRN PO 01/04/18 13:30 01/18/18 13:29 01/06/18 10:42 5 MG Acetaminophen (Tylenol Tab) 1,000 mg Q8H PRN PO 01/04/18 12:45 02/03/18 12:44 01/04/18 17:33 1,000 MG Acetaminophen 100 ml @ 400 mls/hr Q8H PRN IV 01/04/18 12:45 02/03/18 12:44 01/05/18 13:20 400 MLS/HR Naloxone HCl (Narcan Inj) 0.1 mg Q5M PRN IV 01/04/18 12:45 02/03/18 12:44 Senna/Docusate Sodium (Senokot S Tab) 2 tab HS PO 01/04/18 21:00 02/03/18 20:59 01/05/18 21:23 2 TAB Sodium Biphosphate/ Sodium Phosphate (Fleet Enema) 132 ml ONE PRN VT 01/04/18 12:45 02/03/18 12:44 Hydroxyzine HCl (Vistaril Tab) 25 mg Q8H PRN PO 01/04/18 12:45 02/03/18 12:44 Al Hydroxide/Mg Hydroxide (Maalox Susp) 30 ml Q6H PRN PO 01/04/18 12:45 02/03/18 12:44 Famotidine (Pepcid Tab) 20 mg Q12 PRN PO 01/04/18 12:45 02/03/18 12:44 Diphenhydramine HCl (Benadryl Cap) 25 mg Q6H PRN PO 01/04/18 12:45 02/03/18 12:44 Allopurinol (Zyloprim Tab) 300 mg QAM PO 01/05/18 09:00 02/04/18 08:59 01/05/18 08:42 300 MG Aspirin (Ecotrin Tab) 81 mg QAM PO 01/05/18 09:00 02/04/18 08:59 01/06/18 09:23 81 MG Levothyroxine Sodium (Synthroid Tab) 100 mcg DAILYBB PO 01/05/18 06:00 02/04/18 05:59 01/06/18 06:33 100 MCG Metoprolol Succinate (Toprol Xl Tab) 25 mg QAM PO 01/05/18 09:00 02/04/18 08:59 Future Hold 01/05/18 08:38 25 MG Multivitamins (Multivitamin Tab) 1 tab QPM PO 01/04/18 21:00 02/03/18 20:59 01/05/18 21:23 1 TAB Rosuvastatin Calcium (Crestor Tab) 5 mg QAM PO 01/05/18 09:00 02/04/18 08:59 01/06/18 09:23 5 MG Tamsulosin HCl (Flomax Cap) 0.4 mg QPM PO 01/04/18 21:00 02/03/18 20:59 01/05/18 21:23 0.4 MG Ketorolac Tromethamine (Toradol Inj) 15 mg Q6H PRN IV. 01/05/18 08:00 01/10/18 07:59 01/06/18 10:40 15 MG Pantoprazole Sodium (Protonix Tab) 40 mg QAM PO 01/06/18 09:00 02/05/18 08:59 01/06/18 09:21 40 MG Ferrous Sulfate (Feosol Tab) 325 mg BIDM PO 01/06/18 17:45 02/05/18 17:44 Sodium Chloride 1,000 ml @ 125 mls/hr Q8H IV 01/06/18 11:00 02/05/18 10:59 Physical Exam Date Time Temp Pulse Resp B/P (MAP) Pulse Ox O2 Delivery O2 Flow Rate FiO2 01/06/18 07:50 36.4 62 18 108/65 (79) 96 Room Air 01/06/18 07:28 36.5 65 16 100/55 (70) 94 Room Air 01/06/18 06:50 70 122/72 (89) 96 Room Air 80 125/68 (87) 85 131/78 (95) 01/06/18 00:20 Room Air 01/05/18 23:12 37.0 71 16 112/64 (80) 94 Room Air 01/05/18 17:00 Room Air 01/05/18 16:50 65 115/67 (83) 01/05/18 16:00 36.9 65 16 103/60 (74) 97 Room Air 01/05/18 15:00 77 133/73 (93) 01/05/18 14:28 68 106/63 (77) 01/05/18 13:56 61 105/65 (78) 01/05/18 13:30 61 100/64 (76) 01/05/18 13:02 88/52 (64) 63 01/05/18 12:53 56 64/39 (47) 96 Room Air 01/05/18 12:51 60 69/39 (49) 01/05/18 12:02 36.6 62 16 101/62 (75) 100 Room Air General Appearance: WD/WN, no apparent distress, + pertinent finding (Resting in bed comfortably. Becomes lightheaded with repositioning ) Head: normocephalic, atraumatic Eyes: normal inspection, PERRL, sclerae normal ENT: normal ENT inspection, hearing grossly normal, pharynx normal (moist mucous membranes ) Neck: supple, thyroid normal, trachea midline Respiratory/Chest: chest non-tender, lungs clear, normal breath sounds, no respiratory distress, no accessory muscle use Cardiovascular: regular rate, rhythm, no murmur, normal peripheral pulses Abdomen/GI: non tender, soft Back: normal inspection, + pertinent finding (Lower back surgical site clean, dry, intact. IRAIDA drain with ~80cc serosanguineous drainage ) Extremities/Musculoskelatal: normal inspection, no calf tenderness, normal capillary refill, no pedal edema Neurologic/Psych: no motor/sensory deficits, alert, normal mood/affect, oriented x 3 Skin: normal color, warm/dry, no rash Laboratory Results Last 24 Hours Test 01/05/18 13:12 01/06/18 06:06 Hemoglobin 10.2 g/dL 9.5 g/dL Hematocrit 29.4 % 27.9 % White Blood Count 7.11 K/uL Red Blood Count 3.03 M/uL Mean Corpuscular Volume 92.1 fL Mean Corpuscular Hemoglobin 31.4 pg Mean Corpuscular Hemoglobin Concent 34.1 g/dl RDW Standard Deviation 44.4 fL RDW Coefficient of Variation 13.1 % Platelet Count 150 K/uL Mean Platelet Volume 9.9 fL Sodium Level 140 mmol/L Potassium Level 3.7 mmol/L Chloride Level 109 mmol/L Carbon Dioxide Level 24 mmol/L Anion Gap 7.0 mmol/L Blood Urea Nitrogen 12 mg/dl Creatinine 0.92 mg/dl Est Creatinine Clear Calc Drug Dose 91.5 ml/min Estimated GFR () 99.4 Estimated GFR (Non- 85.8 BUN/Creatinine Ratio 13.5 Random Glucose 93 mg/dl Calcium Level 8.1 mg/dl Assessment & Plan POST OP DAY#2 S/P LUMBAR DECOMPRESSION AND FUSION BY DR. BECK -Continue PT/OT as able to tolerate (has been experiencing orthostatic hypotension) -Pain/wound management per ortho -Continue to monitor IRAIDA drain output -Incentive spirometry ACUTE BLOOD LOSS ANEMIA -Hgb: 15 prior to surgery. Hgb 11.5 immediately post op. EBL: 1000 mL with IRAIDA drain in place -Hgb has been stabilizing between 9-10 over the past 2 days -IRAIDA drain with ~80 cc serosanguineous drainage this AM -Continue to monitor hgb -Initiated iron supplement ORTHOSTATIC HYPOTENSION -SBP of 105-110 yesterday, decreases to 80 with standing -Hold all BP home meds: benazepril/hctz and metoprolol -Increased fluid rate of IV NSS -Continue to monitor vitals closely CONSTIPATION -Colace, Miralax H/O DILATED PROXIMAL ASCENDING AORTA -Echo: 08/2017: Mildly dilated proximal ascending aorta, diameter 4.1 cm -History of stress echo 08/2017: No inducible ischemia, EF: 55-59% H/O WPW HYPOTHYROIDISM TSH: 1.8 on 12/2017 -Continue levothyroxine HLD -Continue statin GOUT -Continue allopurinol GERD -Continue PPI DAYANARA History intolerance to CPAP -Supplemental oxygen at bedtime BPH -Continue Flomax DVT Prophylaxis -per ortho Pt was seen and examined. Agreed with Eduarda LERMA assessment and plan. Continue holding BP med. Monitor h/h and blood pressure. PT/OT. MD Bakari
[2018-01-06] MEDS: SODIUM CHLORIDE 0.9% 1000ML 1,000 ML IV SCH ×2 (12:05→20:21)
[2018-01-06 15:12] VITALS: BP 135/75; PULSE 68; TEMP 36.6; O2SAT 95
[2018-01-06] MEDS: ACETAMINOPHEN IV 100 ML IV PRN (15:22)
[2018-01-06 16:21] LABS: HEMATOCRIT 28.5 % (42-52); HEMOGLOBIN 9.9 g/dL (14.0-18.0)
[2018-01-06] MEDS: FERROUS SULFATE 325 MG TAB PO SCH (18:09)
[2018-01-06] MEDS: DOCUSATE SODIUM/SENNA 50/8.6MG TAB PO SCH (21:00)
[2018-01-06] MEDS: MULTIVITAMIN TAB PO SCH (21:25)
[2018-01-06] MEDS: TAMSULOSIN HCL 0.4 MG CAP PO SCH (21:25)
[2018-01-06] MEDS ORDERED: NURSING DECISION MEDICATION ORDER SCH (23:00)
[2018-01-06 23:04] VITALS: BP 126/67; PULSE 66; TEMP 36.8; O2SAT 96
[2018-01-07] MEDS: SODIUM CHLORIDE 0.9% 1000ML 1,000 ML IV SCH ×2 (04:02→15:42)
[2018-01-07 05:53] LABS: HEMATOCRIT 26.2 % (42-52); MEAN CELL VOLUME 92.3 fL (80-100); MEAN CORPUSCULAR HEMOGLOBIN 31.7 pg (25-34); MEAN CORPUSCULAR HGB CONC 34.4 g/dl (32-36); MEAN PLATELET VOLUME 9.8 fL (7.4-10.4); PLATELET COUNT 141 K/uL (130-400); RED CELL DISTRIBUTION WIDTH SD 44.1 fL (36.4-46.3)
[2018-01-07] MEDS: LEVOTHYROXINE 100 MCG TAB PO SCH (05:58)
[2018-01-07] MEDS: ACETAMINOPHEN IV 100 ML IV PRN ×2 (06:00→18:49)
[2018-01-07 06:19] LABS: CREATININE 0.82 mg/dl (0.60-1.40)
[2018-01-07 07:00] VITALS: BP 107/64; PULSE 73; TEMP 36.5; O2SAT 97
--- NOTE | 2018-01-07 08:31 | Orthopedic Progress Note ---
Orthopedic Progress Note Date of Service Jan 07, 2018. Subjective Post OP Day: 3 Additional Notes: Patient presents postop day #3. He states he is feeling better today he still feels a bit weak and tired. He has not been up and walking as much as he would like. But the pain has subsided. He denies any other numbness tingling or paresthesias. Objective calves soft nontender, N/V intact, dressing C/D/I, CMS intact Patient's hematocrit today was 26.2 with hemoglobin of 9.0. Blood pressure is 107 on 64. IRAIDA drain is placed at 75 cc of drainage. Date Time Temp Pulse Resp B/P (MAP) Pulse Ox O2 Delivery O2 Flow Rate FiO2 01/07/18 07:00 36.5 73 16 107/64 (78) 97 Room Air 01/07/18 00:34 Room Air 01/06/18 23:04 36.8 66 18 126/67 (86) 96 Room Air 01/06/18 20:30 Room Air 01/06/18 15:12 36.6 68 18 135/75 (95) 95 Room Air Laboratory Results 24 Hours: Test 01/06/18 14:02 01/07/18 05:31 Hematocrit 28.5 % 26.2 % Hemoglobin 9.9 g/dL 9.0 g/dL Assessment & Plan Assessment: Patient is improving postoperative day #3. Plan: Patient will continue with ambulation. Were going to continue to monitor his hematocrit. Will defer to medicine but will try to avoid a transfusion at this point. We will keep him today and see how he is doing tomorrow.
[2018-01-07 10:54] VITALS: BP 127/76
[2018-01-07] MEDS: KETOROLAC TROMETHAMINE 15 MG/ML VIAL IV. PRN (12:12)
[2018-01-07] MEDS: FERROUS SULFATE 325 MG TAB PO SCH ×2 (12:30→17:45)
[2018-01-07] MEDS: ROSUVASTATIN CALCIUM 10 MG TAB PO SCH (12:30)
[2018-01-07] MEDS: ASPIRIN 81 MG ECTAB PO SCH (12:31)
[2018-01-07] MEDS: PANTOprazole SOD 40 MG TAB PO SCH (12:31)
[2018-01-07] MEDS: ALLOPURINOL 300 MG TAB PO SCH (12:32)
[2018-01-07 14:57] VITALS: BP 111/70; PULSE 73; TEMP 36.7; O2SAT 96
[2018-01-07] MEDS ORDERED: NURSING VERBAL MED ORDER ONE (17:00)
--- NOTE | 2018-01-07 18:21 | Progress Note ---
Medicine Progress Note Date & Time of Visit: Jan 07, 2018 at 18:09. Subjective Pt was seen and examined Sitting in chair comfortable with no distress Pt said that he feels much better today He said that he walked around the hallway today with physical therapy Denies any dizziness, chest pain, palpitation and SOB Objective Last 8 Hrs Date Time Temp Pulse Resp B/P (MAP) Pulse Ox O2 Delivery O2 Flow Rate FiO2 01/07/18 14:57 36.7 73 18 111/70 (84) 96 Room Air Physical Exam: General-No acute distress Head- atraumatic Eyes- PERRL, EOMI ENT- oropharynx clear Neck- supple, no JVD Lungs- clear to auscultation Heart- regular rhythm; no murmur Abdomen- normal bowel sounds, soft Extremities-no calf tenderness Neuro- alert, oriented x 3; PERRL Skin- warm & dry Laboratory Results: Last 24 Hours Test 01/07/18 05:31 White Blood Count 6.60 K/uL Red Blood Count 2.84 M/uL Hemoglobin 9.0 g/dL Hematocrit 26.2 % Mean Corpuscular Volume 92.3 fL Mean Corpuscular Hemoglobin 31.7 pg Mean Corpuscular Hemoglobin Concent 34.4 g/dl RDW Standard Deviation 44.1 fL RDW Coefficient of Variation 13.0 % Platelet Count 141 K/uL Mean Platelet Volume 9.8 fL Sodium Level 141 mmol/L Potassium Level 4.0 mmol/L Chloride Level 111 mmol/L Carbon Dioxide Level 24 mmol/L Anion Gap 5.0 mmol/L Blood Urea Nitrogen 13 mg/dl Creatinine 0.82 mg/dl Est Creatinine Clear Calc Drug Dose 102.6 ml/min Estimated GFR () 106.1 Estimated GFR (Non- 91.5 BUN/Creatinine Ratio 15.7 Random Glucose 95 mg/dl Calcium Level 8.0 mg/dl Assessment & Plan POST OP DAY#3 S/P LUMBAR DECOMPRESSION AND FUSION BY DR. NICHOLS No post op complication Clinically improved Continue pain control Incentive spirometry Continue IRA[place] drained Continue PT/OT ACUTE BLOOD LOSS ANEMIA Hgb 9 today Continue to monitor hgb ORTHOSTATIC HYPOTENSION Continue holding all BP home meds: benazepril/hctz and metoprolol D/C IVF BP has been stable CONSTIPATION On Colace, Miralax H/O DILATED PROXIMAL ASCENDING AORTA -Echo: 08/2017: Mildly dilated proximal ascending aorta, diameter 4.1 cm -History of stress echo 08/2017: No inducible ischemia, EF: 55-59% HYPOTHYROIDISM TSH: 1.8 on 12/2017 Continue levothyroxine HLD Continue statin GOUT Continue allopurinol GERD Continue PPI DAYANARA History intolerance to CPAP Supplemental oxygen at bedtime BPH Continue Flomax DVT Prophylaxis per ortho CODE STATUS FULL CODE Current Inpatient Medications: Current Inpatient Medications Medications (Trade) Dose Ordered Sig/Pilar Route Start Time Stop Time Status Last Admin Dose Admin Promethazine HCl 12.5 mg/Sodium Chloride 50.5 ml @ 202 mls/hr Q6H PRN IV 01/04/18 12:45 02/03/18 12:44 Ondansetron HCl (Zofran Inj) 4 mg Q6H PRN IV 01/04/18 12:45 02/03/18 12:44 Metoclopramide HCl (Reglan Inj) 10 mg Q6H PRN IV 01/04/18 12:45 02/03/18 12:44 Lorazepam (Ativan Tab) 0.5 mg Q8H PRN PO 01/04/18 12:45 02/03/18 12:44 Lorazepam 0.5 mg/ Syringe 0.25 ml @ 1 mls/min Q8H PRN IV 01/04/18 12:45 02/03/18 12:44 Pneumococcal Polysaccharide Vaccine 1 ea PRN PRN N/A 01/04/18 12:45 02/03/18 12:44 Influenza Virus Vacc Triv Types A&B 1 ea PRN PRN N/A 01/04/18 12:45 02/03/18 12:44 Bisacodyl (Dulcolax Supp) 10 mg DAILY PRN MI 01/04/18 12:45 02/03/18 12:44 Magnesium Hydroxide (Milk Of Magnesia Susp) 30 ml DAILY PRN PO 01/04/18 12:45 02/03/18 12:44 Hydromorphone HCl (Dilaudid Inj) 0.5-1mg prn moder... Q3H PRN IV 01/04/18 13:30 01/18/18 13:29 Oxycodone HCl (Roxicodone Immediate Rel Tab) 5-10mg prn moderate to sev... Q4H PRN PO 01/04/18 13:30 01/18/18 13:29 01/06/18 21:26 5 MG Acetaminophen (Tylenol Tab) 1,000 mg Q8H PRN PO 01/04/18 12:45 02/03/18 12:44 01/04/18 17:33 1,000 MG Acetaminophen 100 ml @ 400 mls/hr Q8H PRN IV 01/04/18 12:45 02/03/18 12:44 01/07/18 06:00 400 MLS/HR Naloxone HCl (Narcan Inj) 0.1 mg Q5M PRN IV 01/04/18 12:45 02/03/18 12:44 Senna/Docusate Sodium (Senokot S Tab) 2 tab HS PO 01/04/18 21:00 02/03/18 20:59 01/05/18 21:23 2 TAB Sodium Biphosphate/ Sodium Phosphate (Fleet Enema) 132 ml ONE PRN MI 01/04/18 12:45 02/03/18 12:44 Hydroxyzine HCl (Vistaril Tab) 25 mg Q8H PRN PO 01/04/18 12:45 02/03/18 12:44 Al Hydroxide/Mg Hydroxide (Maalox Susp) 30 ml Q6H PRN PO 01/04/18 12:45 02/03/18 12:44 Famotidine (Pepcid Tab) 20 mg Q12 PRN PO 01/04/18 12:45 02/03/18 12:44 Diphenhydramine HCl (Benadryl Cap) 25 mg Q6H PRN PO 01/04/18 12:45 02/03/18 12:44 Allopurinol (Zyloprim Tab) 300 mg QAM PO 01/05/18 09:00 02/04/18 08:59 01/07/18 12:32 300 MG Aspirin (Ecotrin Tab) 81 mg QAM PO 01/05/18 09:00 02/04/18 08:59 01/07/18 12:31 81 MG Levothyroxine Sodium (Synthroid Tab) 100 mcg DAILYBB PO 01/05/18 06:00 02/04/18 05:59 01/07/18 05:58 100 MCG Metoprolol Succinate (Toprol Xl Tab) 25 mg QAM PO 01/05/18 09:00 02/04/18 08:59 Future Hold 01/05/18 08:38 25 MG Multivitamins (Multivitamin Tab) 1 tab QPM PO 01/04/18 21:00 02/03/18 20:59 01/06/18 21:25 1 TAB Rosuvastatin Calcium (Crestor Tab) 5 mg QAM PO 01/05/18 09:00 02/04/18 08:59 01/07/18 12:30 5 MG Tamsulosin HCl (Flomax Cap) 0.4 mg QPM PO 01/04/18 21:00 02/03/18 20:59 01/06/18 21:25 0.4 MG Ketorolac Tromethamine (Toradol Inj) 15 mg Q6H PRN IV. 01/05/18 08:00 01/10/18 07:59 01/07/18 12:12 15 MG Pantoprazole Sodium (Protonix Tab) 40 mg QAM PO 01/06/18 09:00 02/05/18 08:59 01/07/18 12:31 40 MG Ferrous Sulfate (Feosol Tab) 325 mg BIDM PO 01/06/18 17:45 02/05/18 17:44 01/07/18 12:30 325 MG
[2018-01-07] MEDS: TAMSULOSIN HCL 0.4 MG CAP PO SCH (20:17)
[2018-01-07] MEDS: MULTIVITAMIN TAB PO SCH (20:17)
[2018-01-07] MEDS: DOCUSATE SODIUM/SENNA 50/8.6MG TAB PO SCH (20:17)
[2018-01-07 23:16] VITALS: BP 145/75; PULSE 63; TEMP 36.5; O2SAT 95
[2018-01-08 05:42] LABS: HEMATOCRIT 26.5 % (42-52); MEAN CELL VOLUME 92.3 fL (80-100); MEAN CORPUSCULAR HEMOGLOBIN 31.4 pg (25-34); MEAN PLATELET VOLUME 9.8 fL (7.4-10.4); PLATELET COUNT 193 K/uL (130-400); RED CELL DISTRIBUTION WIDTH CV 12.8 % (11.5-14.5); RED CELL DISTRIBUTION WIDTH SD 43.7 fL (36.4-46.3); WHITE BLOOD COUNT 6.11 K/uL (4.8-10.8)
[2018-01-08] MEDS: LEVOTHYROXINE 100 MCG TAB PO SCH (05:53)
[2018-01-08 07:20] VITALS: BP 157/77; PULSE 72; TEMP 36.7; O2SAT 95
[2018-01-08] MEDS: ACETAMINOPHEN IV 100 ML IV PRN ×2 (09:14→21:15)
[2018-01-08] MEDS: FERROUS SULFATE 325 MG TAB PO SCH ×2 (09:16→17:06)
[2018-01-08] MEDS: PANTOprazole SOD 40 MG TAB PO SCH (09:17)
[2018-01-08] MEDS: ALLOPURINOL 300 MG TAB PO SCH (09:17)
[2018-01-08] MEDS: ASPIRIN 81 MG ECTAB PO SCH (09:17)
--- NOTE | 2018-01-08 09:22 | Orthopedic Progress Note ---
Orthopedic Progress Note Date of Service Jan 08, 2018. Subjective Post OP Day: 4 Additional Notes: Patient is here postop day #4. He had a good day yesterday without any episodes of dizziness. His blood pressure has improved. He did well with physical therapy but has not yet been deemed independent. He denies any other numbness, tingling, or paresthesias. Objective On exam he is seated in his chair and appears to be comfortable. His calves are soft nontender strength and sensation are both intact gait was not observed. Dressings clean dry and intact. His output was 60 cc from his IRA[place] drain this shift 40 on the last. Blood counts are 26.5 hematocrit 9.0 hemoglobin. Date Time Temp Pulse Resp B/P (MAP) Pulse Ox O2 Delivery O2 Flow Rate FiO2 01/08/18 07:20 36.7 72 16 157/77 (103) 95 Room Air 01/08/18 00:15 Room Air 01/07/18 23:16 36.5 63 16 145/75 (98) 95 Room Air 01/07/18 18:30 Room Air 01/07/18 14:57 36.7 73 18 111/70 (84) 96 Room Air Laboratory Results 24 Hours: Test 01/08/18 05:17 Hematocrit 26.5 % Hemoglobin 9.0 g/dL Assessment & Plan Assessment: Patient is improving postoperative day #4. Plan: Patient is improving postoperative day #4. He has not yet been cleared by physical therapy. His drainage is still on the high side as well. We will continue to progress him with physical therapy today continue with mobilization efforts to move towards independence. All likelihood will be able to discharge him home tomorrow independently.
[2018-01-08] MEDS ORDERED: METOPROLOL SUCC 25MG EXT REL TAB PO ONE (11:00)
[2018-01-08] MEDS ORDERED: NURSING VERBAL MED ORDER ONE (11:00)
[2018-01-08 11:08] VITALS: BP 116/70
[2018-01-08] MEDS: ROSUVASTATIN CALCIUM 10 MG TAB PO SCH (11:48)
[2018-01-08 15:15] VITALS: O2SAT 99
[2018-01-08 15:16] VITALS: BP 117/71; PULSE 65; TEMP 36.4; O2SAT 99
--- NOTE | 2018-01-08 19:13 | Progress Note ---
Medicine Progress Note Date & Time of Visit: Jan 08, 2018 at 19:09. Subjective Pt was seen and examined Sitting in chair with no distress Pt said that he feels much better today He said that he walked around the hallway with no distress Pain seems to be under control Denies and chest pain, palpitation, dizziness and SOB Objective Last 8 Hrs Date Time Temp Pulse Resp B/P (MAP) Pulse Ox O2 Delivery O2 Flow Rate FiO2 01/08/18 15:16 36.4 65 17 117/71 (86) 99 Room Air 01/08/18 15:15 99 Room Air Physical Exam: General-No acute distress Head- atraumatic Eyes- PERRL, EOMI ENT- oropharynx clear Neck- supple, no JVD Lungs- clear to auscultation Heart- regular rhythm; no murmur Abdomen- normal bowel sounds, soft Extremities-no calf tenderness Neuro- alert, oriented x 3; PERRL Skin- warm & dry Laboratory Results: Last 24 Hours Test 01/08/18 05:17 White Blood Count 6.11 K/uL Red Blood Count 2.87 M/uL Hemoglobin 9.0 g/dL Hematocrit 26.5 % Mean Corpuscular Volume 92.3 fL Mean Corpuscular Hemoglobin 31.4 pg Mean Corpuscular Hemoglobin Concent 34.0 g/dl RDW Standard Deviation 43.7 fL RDW Coefficient of Variation 12.8 % Platelet Count 193 K/uL Mean Platelet Volume 9.8 fL Assessment & Plan POST OP DAY#4 S/P LUMBAR DECOMPRESSION AND FUSION BY DR. NICHOLS No post op complication Clinically improved Continue pain control Incentive spirometry Continue IRA[place] drained Continue PT/OT ACUTE BLOOD LOSS ANEMIA Hgb 9 today Continue to monitor hgb Stable ORTHOSTATIC HYPOTENSION BP improves Resumed metoprolol today Continue holding benazepril/hctz CONSTIPATION On Colace, Miralax H/O DILATED PROXIMAL ASCENDING AORTA -Echo: 08/2017: Mildly dilated proximal ascending aorta, diameter 4.1 cm -History of stress echo 08/2017: No inducible ischemia, EF: 55-59% HYPOTHYROIDISM TSH: 1.8 on 12/2017 Continue levothyroxine HLD Continue statin GOUT Continue allopurinol GERD Continue PPI DAYANARA History intolerance to CPAP Supplemental oxygen at bedtime BPH Continue Flomax DVT Prophylaxis per ortho CODE STATUS FULL CODE Current Inpatient Medications: Current Inpatient Medications Medications (Trade) Dose Ordered Sig/Pilar Route Start Time Stop Time Status Last Admin Dose Admin Promethazine HCl 12.5 mg/Sodium Chloride 50.5 ml @ 202 mls/hr Q6H PRN IV 01/04/18 12:45 02/03/18 12:44 Ondansetron HCl (Zofran Inj) 4 mg Q6H PRN IV 01/04/18 12:45 02/03/18 12:44 Metoclopramide HCl (Reglan Inj) 10 mg Q6H PRN IV 01/04/18 12:45 02/03/18 12:44 Lorazepam (Ativan Tab) 0.5 mg Q8H PRN PO 01/04/18 12:45 02/03/18 12:44 01/08/18 00:27 0.5 MG Lorazepam 0.5 mg/ Syringe 0.25 ml @ 1 mls/min Q8H PRN IV 01/04/18 12:45 02/03/18 12:44 Pneumococcal Polysaccharide Vaccine 1 ea PRN PRN N/A 01/04/18 12:45 02/03/18 12:44 Influenza Virus Vacc Triv Types A&B 1 ea PRN PRN N/A 01/04/18 12:45 02/03/18 12:44 Bisacodyl (Dulcolax Supp) 10 mg DAILY PRN ID 01/04/18 12:45 02/03/18 12:44 Magnesium Hydroxide (Milk Of Magnesia Susp) 30 ml DAILY PRN PO 01/04/18 12:45 02/03/18 12:44 Hydromorphone HCl (Dilaudid Inj) 0.5-1mg prn moder... Q3H PRN IV 01/04/18 13:30 01/18/18 13:29 Oxycodone HCl (Roxicodone Immediate Rel Tab) 5-10mg prn moderate to sev... Q4H PRN PO 01/04/18 13:30 01/18/18 13:29 01/06/18 21:26 5 MG Acetaminophen (Tylenol Tab) 1,000 mg Q8H PRN PO 01/04/18 12:45 02/03/18 12:44 01/04/18 17:33 1,000 MG Acetaminophen 100 ml @ 400 mls/hr Q8H PRN IV 01/04/18 12:45 02/03/18 12:44 01/08/18 09:14 400 MLS/HR Naloxone HCl (Narcan Inj) 0.1 mg Q5M PRN IV 01/04/18 12:45 02/03/18 12:44 Senna/Docusate Sodium (Senokot S Tab) 2 tab HS PO 01/04/18 21:00 02/03/18 20:59 01/07/18 20:17 2 TAB Sodium Biphosphate/ Sodium Phosphate (Fleet Enema) 132 ml ONE PRN ID 01/04/18 12:45 02/03/18 12:44 Hydroxyzine HCl (Vistaril Tab) 25 mg Q8H PRN PO 01/04/18 12:45 02/03/18 12:44 Al Hydroxide/Mg Hydroxide (Maalox Susp) 30 ml Q6H PRN PO 01/04/18 12:45 02/03/18 12:44 Famotidine (Pepcid Tab) 20 mg Q12 PRN PO 01/04/18 12:45 02/03/18 12:44 Diphenhydramine HCl (Benadryl Cap) 25 mg Q6H PRN PO 01/04/18 12:45 02/03/18 12:44 Allopurinol (Zyloprim Tab) 300 mg QAM PO 01/05/18 09:00 02/04/18 08:59 01/08/18 09:17 300 MG Aspirin (Ecotrin Tab) 81 mg QAM PO 01/05/18 09:00 02/04/18 08:59 01/08/18 09:17 81 MG Levothyroxine Sodium (Synthroid Tab) 100 mcg DAILYBB PO 01/05/18 06:00 02/04/18 05:59 01/08/18 05:53 100 MCG Metoprolol Succinate (Toprol Xl Tab) 25 mg QAM PO 01/05/18 09:00 02/04/18 08:59 Future hold 01/05/18 08:38 25 MG Multivitamins (Multivitamin Tab) 1 tab QPM PO 01/04/18 21:00 02/03/18 20:59 01/07/18 20:17 1 TAB Rosuvastatin Calcium (Crestor Tab) 5 mg QAM PO 01/05/18 09:00 02/04/18 08:59 85/18 11:48 5 MG Tamsulosin HCl (Flomax Cap) 0.4 mg QPM PO 01/04/18 21:00 02/03/18 20:59 01/07/18 20:17 0.4 MG Ketorolac Tromethamine (Toradol Inj) 15 mg Q6H PRN IV. 01/05/18 08:00 01/10/18 07:59 01/07/18 12:12 15 MG Pantoprazole Sodium (Protonix Tab) 40 mg QAM PO 01/06/18 09:00 02/05/18 08:59 01/08/18 09:17 40 MG Ferrous Sulfate (Feosol Tab) 325 mg BIDM PO 01/06/18 17:45 02/05/18 17:44 01/08/18 17:06 325 MG
[2018-01-08] MEDS: DOCUSATE SODIUM/SENNA 50/8.6MG TAB PO SCH (21:09)
[2018-01-08] MEDS: TAMSULOSIN HCL 0.4 MG CAP PO SCH (21:09)
[2018-01-08] MEDS: MULTIVITAMIN TAB PO SCH (21:09)
[2018-01-08 23:18] VITALS: BP 135/73; PULSE 62; TEMP 36.9; O2SAT 97
[2018-01-09] MEDS: LEVOTHYROXINE 100 MCG TAB PO SCH (05:09)
[2018-01-09 06:07] VITALS: BP 146/84; PULSE 59; TEMP 36.7; O2SAT 95
[2018-01-09 06:47] LABS: HEMATOCRIT 28.4 % (42-52); HEMOGLOBIN 9.8 g/dL (14.0-18.0); MEAN CELL VOLUME 91.6 fL (80-100); MEAN CORPUSCULAR HEMOGLOBIN 31.6 pg (25-34); MEAN CORPUSCULAR HGB CONC 34.5 g/dl (32-36); MEAN PLATELET VOLUME 9.3 fL (7.4-10.4); PLATELET COUNT 231 K/uL (130-400); RED CELL DISTRIBUTION WIDTH CV 12.9 % (11.5-14.5); RED CELL DISTRIBUTION WIDTH SD 43.1 fL (36.4-46.3); WHITE BLOOD COUNT 5.37 K/uL (4.8-10.8)
[2018-01-09] MEDS: PANTOprazole SOD 40 MG TAB PO SCH (07:39)
[2018-01-09] MEDS: FERROUS SULFATE 325 MG TAB PO SCH (07:39)
[2018-01-09] MEDS: ASPIRIN 81 MG ECTAB PO SCH (07:39)
[2018-01-09] MEDS: ROSUVASTATIN CALCIUM 10 MG TAB PO SCH (07:39)
[2018-01-09 07:40] VITALS: BP 146/70
[2018-01-09] MEDS: METOPROLOL SUCC 25MG EXT REL TAB PO SCH (07:40)
[2018-01-09] MEDS: ALLOPURINOL 300 MG TAB PO SCH (07:42)
[2018-01-09 08:01] VITALS: BP 146/70; PULSE 59; TEMP 36.7; O2SAT 95
--- NOTE | 2018-01-09 13:35 | Discharge Summary ---
Orthopedic Discharge Summary Admission Date/Reason Jan 04, 2018 at 09:30 Spinal Stenosis. Discharge Date/Disposition Jan 09, 2018 Home with services Diagnosis Principal Diagnosis: Lumbar spinal stenosis Admission Physical Exam As per Admitting History & Physical. Hospital Course Patient with lumbar decompression fusion tolerated as well as taken to the orthopedic floor possibly. Postop day #1 he was up but not fully ambulatory. He did progress over on a daily basis throughout the weekend. Leg symptoms improved back pain controlled IRA[place] drain decreased appropriately. Subsequently was discharged home. Discharge orders and instructions can be found in the chart for further review. Discharge Instructions Please refer to the electronic Patient Visit Report (Discharge Instructions) for additional information.
== END 2018-01-09 13:40 | disposition home health service (06) | DRG 454 ==
LOC: C.ACU 07:46 → C.3E 09:30 → ENRESERV 13:30
PROVIDERS: ADMIT Orthopaedic Surgery Orthopaedic Surgery of the Spine; ATTEND Orthopaedic Surgery Orthopaedic Surgery of the Spine
PROC: 0SG1071 Fusion of 2 or more Lumbar Vertebral Joints with Autologous Tissue Substitute, Posterior Approach, Posterior Column, Open Approach (ICD-10-PCS; principal; 2018-01-04 10:15)
PROC: 3E0U0GB Introduction of Recombinant Bone Morphogenetic Protein into Joints, Open Approach (ICD-10-PCS; principal; 2018-01-04 10:15)
PROC: 0ST20ZZ Resection of Lumbar Vertebral Disc, Open Approach (ICD-10-PCS; principal; 2018-01-04 10:15)
PROC: 0SG10AJ Fusion of 2 or more Lumbar Vertebral Joints with Interbody Fusion Device, Posterior Approach, Anterior Column, Open Approach (ICD-10-PCS; principal; 2018-01-04 10:15)
DX: M48.062 Spinal stenosis, lumbar region with neurogenic claudication (principal); M43.16 Spondylolisthesis, lumbar region; D62 Acute posthemorrhagic anemia; M17.12 Unilateral primary osteoarthritis, left knee; M48.061 Spinal stenosis, lumbar region without neurogenic claudication; I10 Essential (primary) hypertension; K21.9 Gastro-esophageal reflux disease without esophagitis; G47.33 Obstructive sleep apnea (adult) (pediatric); E78.5 Hyperlipidemia, unspecified; M10.9 Gout, unspecified; I45.6 Pre-excitation syndrome; E03.9 Hypothyroidism, unspecified; N40.0 Benign prostatic hyperplasia without lower urinary tract symptoms; Z80.0 Family history of malignant neoplasm of digestive organs; Z82.49 Family history of ischemic heart disease and other diseases of the circulatory system; I95.89 Other hypotension; K59.00 Constipation, unspecified